=== PATIENT | female | born 1945 | race Caucasian/White ===

== ENCOUNTER 2017-05-10 16:52 | Emergency (ER) | payer OTHER ==
[~2017-05-10] VITALS: Ht 160 cm; Wt 85.1 kg
[~2017-05-10 16:52] MED LIST: ALLEGRA ALLERG180 MG PO; COLACE100 MG PO; DELSYM30 MG/5 M1 PO; FLONASE16 G1 BOTH NARES; GLUCOPHAGE500 MG PO; LEVAQUIN750 MG PO; LEVOTHROID,S0.125 MG PO; LEVOTHYROXINE88 MCG PO; LIPITOR40 MG PO; LISINOPRIL20 MG PO; MELOXICAM15 MG PO; MELOXICAM7.5 MG PO; METFORMIN HCL500 MG PO; NORVASC5 MG PO; PAXIL10 MG PO; PERCOCET 5/31 TABLET PO; PROTONIX40 MG PO; SIMVASTATIN40 M1 PO; ZESTRIL20 MG PO
[2017-05-10 17:51] LABS: APPEARANCE CLEAR ((CLEAR)); BILIRUBIN NEGATIVE; BLOOD NEGATIVE; COLOR YELLOW ((YELLOW)); GLUCOSE (STRIP) NEGATIVE; KETONES NEGATIVE; LEUKOCYTES NEGATIVE; NITRITE NEGATIVE; PROTEIN (STRIP) NEGATIVE; SPECIFIC GRAVITY 1.015 (1.000-1.030); UCUL ADDED? NO; UROBILINOGEN 0.2 MG/DL (0.2-1.0)
[2017-05-10 17:55] LABS: HEMATOCRIT 42.9 % (36.0-46.0); HEMOGLOBIN 14.3 G/DL (11.9-15.5); MCH 28.6 PG (29.0-34.0); MCHC 33.3 G/DL (30.0-36.0); MCV 85.8 FL (83-99); RBC DIS.WIDTH-CV 13.5 % (11.8-14.6); RBC DIS.WIDTH-SD 42.3 % (39-53); WHITE BLOOD COUNT 6.5 K/uL (4.1-10.2)
[2017-05-10 17:58] LABS: PLATELET COUNT 222 K/uL (156-360)
[2017-05-10 18:06] LABS: CHLORIDE 109 mEq/L (99-109); POTASSIUM 4.2 mEq/L (3.7-5.4); SODIUM 141 mEq/L (136-147)
[2017-05-10 18:08] LABS: GLUCOSE 123 mg/dL (70-99); TOTAL PROTEIN 7.7 g/dL (6.4-8.3)
[2017-05-10 18:10] LABS: TOTAL BILIRUBIN 0.8 mg/dL (0.0-1.0)
[2017-05-10 18:11] LABS: ALKALINE PHOSPHATASE 73 IU/L (3-129)
[2017-05-10 18:12] LABS: CREATININE 0.9 mg/dL (0.6-1.3); GFR ESTIMATE (CALCULATED) > 59 mL/min/
[2017-05-10 18:13] LABS: AST (GOT) 21 IU/L (2-34); UREA NITROGEN (BUN) 14 mg/dL (9-23)
[2017-05-10 18:14] LABS: ALT (GPT) 30 IU/L (3-49)
[2017-05-10] MEDS ORDERED: TYLENOL WITH C1 EACH PO (19:48)
[2017-05-10] MEDS ORDERED: FLEXERIL5 MG PO (19:48)
[2017-05-10 19:55] VITALS: BP 163/71
== END 2017-05-10 19:56 | disposition home or self-care (01) ==
LOC: EME 16:52
PROVIDERS: Physician Assistant
DX: R10.9 Unspecified abdominal pain (principal); I10 Essential (primary) hypertension; E11.9 Type 2 diabetes mellitus without complications; Z79.84 Long term (current) use of oral hypoglycemic drugs; E78.5 Hyperlipidemia, unspecified; K21.9 Gastro-esophageal reflux disease without esophagitis; Z90.49 Acquired absence of other specified parts of digestive tract
CPT/HCPCS: 74177; 80053; 81003; 82010; 85027; 99281; 99284; J2405; J7030

== ENCOUNTER 2017-06-18 14:55 | Emergency (ER) | payer OTHER ==
[~2017-06-18] VITALS: Ht 157.5 cm; Wt 83.6 kg
[~2017-06-18 14:55] MED LIST changes: +FLEXERIL5 MG PO; +TYLENOL WITH C1 EACH PO
[2017-06-18 15:33] LABS: BASOPHIL COUNT 0.1 K/uL (0-0.1); EOSINOPHIL (%) 1.8 % (0-5); EOSINOPHIL COUNT 0.1 K/uL (0-0.3); HEMATOCRIT 41.1 % (36.0-46.0); HEMOGLOBIN 13.6 G/DL (11.9-15.5); IMMATURE GRANULOCYTE (%) 0.2 % (0.0-0.7); LYMPHOCYTE (%) 46.7 % (15-42); LYMPHOCYTE COUNT 2.9 K/uL (1.0-2.8); MCH 28.8 PG (29.0-34.0); MCHC 33.1 G/DL (30.0-36.0); MCV 86.9 FL (83-99); MONOCYTE (%) 7.9 % (3-12); MONOCYTE COUNT 0.5 K/uL (0-0.8); NEUTROPHIL (%) 42.4 % (45-76); NEUTROPHIL COUNT 2.6 K/uL (1.8-6.4); PLATELET COUNT 205 K/uL (156-360); RBC DIS.WIDTH-CV 13.6 % (11.8-14.6); RBC DIS.WIDTH-SD 43.1 % (39-53); RED BLOOD COUNT 4.73 M/uL (3.80-5.20); WHITE BLOOD COUNT 6.1 K/uL (4.1-10.2)
[2017-06-18 15:41] LABS: CHLORIDE 104 mEq/L (99-109)
[2017-06-18 15:42] LABS: SODIUM 142 mEq/L (136-147)
[2017-06-18 15:43] LABS: GLUCOSE 115 mg/dL (70-99)
[2017-06-18 15:47] LABS: CREATININE 0.9 mg/dL (0.6-1.3); GFR ESTIMATE (CALCULATED) > 59 mL/min/
[2017-06-18 15:48] LABS: UREA NITROGEN (BUN) 8 mg/dL (9-23)
[2017-06-18 15:54] LABS: TROP-I INTERPRETATION NEGATIVE; TROPONIN-I < 0.01 ng/mL (0.0-0.30)
[2017-06-18 16:14] LABS: APPEARANCE CLEAR ((CLEAR)); BILIRUBIN NEGATIVE; BLOOD NEGATIVE; COLOR YELLOW ((YELLOW)); GLUCOSE (STRIP) NEGATIVE; KETONES NEGATIVE; LEUKOCYTES NEGATIVE; NITRITE NEGATIVE; PROTEIN (STRIP) NEGATIVE; SPECIFIC GRAVITY 1.017 (1.000-1.030); UCUL ADDED? NO; UROBILINOGEN 0.2 MG/DL (0.2-1.0)
[2017-06-18 18:21] VITALS: BP 150/100
== END 2017-06-18 18:34 | disposition home or self-care (01) ==
LOC: EME 14:55
PROVIDERS: Emergency Medicine
DX: I10 Essential (primary) hypertension (principal); E11.9 Type 2 diabetes mellitus without complications; K21.9 Gastro-esophageal reflux disease without esophagitis; E78.5 Hyperlipidemia, unspecified; M19.90 Unspecified osteoarthritis, unspecified site; Z79.84 Long term (current) use of oral hypoglycemic drugs; Z87.442 Personal history of urinary calculi; Z90.49 Acquired absence of other specified parts of digestive tract; Z90.710 Acquired absence of both cervix and uterus; Z88.6 Allergy status to analgesic agent; Z88.8 Allergy status to other drugs, medicaments and biological substances
CPT/HCPCS: 70450; 71046; 80048; 81003; 83880; 84484; 85025; 87502; 93005; 99281; 99284

== ENCOUNTER 2017-10-11 15:17 | Emergency (ER) | payer OTHER ==
[~2017-10-11] VITALS: Ht 157.5 cm; Wt 85.1 kg
[2017-10-11 15:40] LABS: HEMATOCRIT 39.4 % (36.0-46.0); HEMOGLOBIN 13.1 G/DL (11.9-15.5); MCH 28.1 PG (29.0-34.0); MCHC 33.2 G/DL (30.0-36.0); MCV 84.5 FL (83-99); PLATELET COUNT 218 K/uL (156-360); RBC DIS.WIDTH-CV 12.7 % (11.8-14.6); RBC DIS.WIDTH-SD 39.5 % (39-53); RED BLOOD COUNT 4.66 M/uL (3.80-5.20); WHITE BLOOD COUNT 7.6 K/uL (4.1-10.2)
[2017-10-11 15:56] LABS: ALBUMIN 4.2 g/dL (3.2-4.8); CHLORIDE 104 mEq/L (99-109); POTASSIUM 4.4 mEq/L (3.7-5.4); SODIUM 140 mEq/L (136-147)
[2017-10-11 15:57] LABS: APPEARANCE CLEAR ((CLEAR)); BILIRUBIN NEGATIVE; BLOOD NEGATIVE; COLOR YELLOW ((YELLOW)); GLUCOSE (STRIP) NEGATIVE; KETONES 5; LEUKOCYTES NEGATIVE; NITRITE NEGATIVE; PROTEIN (STRIP) 30; SPECIFIC GRAVITY 1.024 (1.000-1.030); UCUL ADDED? NO
[2017-10-11 15:59] LABS: GLUCOSE 157 mg/dL (70-99)
[2017-10-11 16:00] LABS: TOTAL BILIRUBIN 0.7 mg/dL (0.0-1.0)
[2017-10-11 16:02] LABS: ALKALINE PHOSPHATASE 83 IU/L (3-129); CREATININE 1.3 mg/dL (0.6-1.3); GFR ESTIMATE (CALCULATED) 43 mL/min/
[2017-10-11 16:03] LABS: UREA NITROGEN (BUN) 16 mg/dL (9-23)
[2017-10-11 16:04] LABS: AST (GOT) 21 IU/L (2-34)
[2017-10-11 16:05] LABS: ALT (GPT) 26 IU/L (3-49)
[2017-10-11] MEDS ORDERED: BENTYL20 MG PO (17:09)
[2017-10-11] MEDS ORDERED: ZOFRAN ODT4 MG PO (17:09)
[2017-10-11 17:24] VITALS: BP 134/73
== END 2017-10-11 17:32 | disposition home or self-care (01) ==
LOC: EME 15:17
DX: R10.9 Unspecified abdominal pain (principal); E11.43 Type 2 diabetes mellitus with diabetic autonomic (poly)neuropathy; K31.84 Gastroparesis; E78.5 Hyperlipidemia, unspecified; I10 Essential (primary) hypertension; K21.9 Gastro-esophageal reflux disease without esophagitis; Z87.442 Personal history of urinary calculi; Z90.49 Acquired absence of other specified parts of digestive tract; Z90.710 Acquired absence of both cervix and uterus; Z79.84 Long term (current) use of oral hypoglycemic drugs; Z88.1 Allergy status to other antibiotic agents; Z88.8 Allergy status to other drugs, medicaments and biological substances
CPT/HCPCS: 74177; 80053; 81003; 85027; 99281; 99284; J7030